=== PATIENT | male | born 1970 | race Caucasian/White ===

== ENCOUNTER 2016-09-03 10:31 | Observation (INO) | payer BC ==
--- NOTE | ~2016-09-03 | HP ---
History And Physical [id number] [facility] [place]. [address] NAME: FORTINO SEVILLA : 66 STATUS : ADM Colleen PAT#: [id number] AGE: 46 ADM/REG DATE : 09/03/16 MR#: [id number] REPORT SERV DATE: 09/03/16 DICTATED BY: PEPPER HERNANDEZ DATE: 09/03/16 REPORT STATUS : Draft TRANSCRIBED BY: MODL DATE: 09/03/16 DATE OF ADMISSION: 09/03/2016 REASON FOR ADMISSION: Abnormal blood test at Dr. Reynolds's office, sent to the emergency room, now suspicious of cardiomegaly, being congestive heart failure by Dr. Son. 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 Reynolds's office. On arrival, his potassium was 4.3. He did have a polycythemia with a red blood cell count of 51.9 of hematocrit but he smokes 2 packs of cigarettes a day. He drinks at least a 12 pack of beer a day. He is hungry and wants to eat. He has been feeling good. He was evaluated earlier by Dr. Son. He thought he had new onset of congestive heart failure and he was admitted to the CDU prior to evaluation in the emergency room. PAST MEDICAL HISTORY: Never in the hospital. He has not had any medical contact until he got his hydrochlorothiazide 25 mg [address] day [address] Reynolds's office. He did have a broken right wrist, was in the hospital about four years ago for repair. SOCIAL HISTORY: He has never been . 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 He smokes 2 packs cigarettes a day and drinks 12 pack of beer a day. He used to go to [employer], does not go anymore. FAMILY HISTORY: Father had congestive heart failure. Mother has a pacemaker. He had one brother who is alive and well. REVIEW OF SYSTEMS: No chest pain. No shortness of breath. No fever, chills, night sweats, melena, hematemesis, nausea, vomiting, or diarrhea. No fits, seizures, or convulsions. He did have some swelling in his legs that prompted the addition of the hydrochlorothiazide recently though this has gone away with the hydrochlorothiazide and he was at work today when he was called in to come to the emergency room. The remainder of the review of systems is negative. PHYSICAL EXAMINATION: VITAL SIGNS: His blood pressure is 138/90 now with a heart rate of 92, respiratory rate 23, and oxygen and saturation 98%. GENERAL: He is very rubric jacki appearing white male, in no acute distress. HEENT: EOMI. Sclerae clear. Conjunctivae pink and plethoric. NECK: No bruit without any JVD. CHEST: Decreased breath sounds throughout. HEART: Regular S1, S2 without murmur, gallop, or click. ABDOMEN: Soft, nontender. Bowel sounds positive. EXTREMITIES: Have trace edema at the ankles. Distal pulses are intact. The dorsalis pedis, posterior tibial neurologically withdraws to plantar stimulation. Acute Care Nurse Practitioner is equal and History And Physical [address] [id number] NAME: FORTINO SEVILLA : 66 STATUS : ADM Colleen PAT#: [id number] AGE: 46 ADM/REG DATE : 09/03/16 MR#: [id number] REPORT SERV DATE: 09/03/16 DICTATED BY: PEPPER HERNANDEZ DATE: 09/03/16 REPORT STATUS : Draft TRANSCRIBED BY: VALDEMAR DATE: 09/03/16 symmetric bilaterally. Coordination intact. He has no tremor. He is symmetric and equal neurologically. SKIN: Without rash, ecchymosis, or bruising. He does have a very jacki, tanned arm and face from sun exposure but also from plethora. LYMPHATICS: There is no adenopathy palpable. LABORATORY DATA: Chest x-ray shows mild cardiomegaly with some cephalization of blood flow versus interstitial disease. Arterial blood gas did show 7.41, 57, and 48, evidence of hypoxemia, however now on room air, oxygen saturation 92%. His hemoglobin is 18.5, hematocrit 51.5 with an MCV of 102.4. White count 5.7, platelets were 188,000. His BMP showed a sodium 131, potassium 4.3, chloride 87, CO2 is 36, creatinine 0.59, and magnesium 1.7. Troponin less than 0.02. EKG is reviewed by myself, appearing to have sinus rhythm with biatrial abnormality, slow R- wave progression, suspicious for old anterior scar; however, there is movement artifact on this. ASSESSMENT: 1. Hypertension. Recently started on hydrochlorothiazide. 2. Polycythemia, likely a combination of the cigarette smoking two packs per day plus the hydrochlorothiazide causing reactive polycythemia. I will ask him to stop cigarette smoking but continue hydrochlorothiazide and recheck with Dr. Reynolds in a few weeks. 3. Recent leg edema. 4. Alcoholism, 12 packs of beer a day. He is afraid to stop. We will likely discharge him home this afternoon after his echocardiogram is obtained in the CDU. 5. Probable COPD with CO2 retention. His PaCO2 is 57, and I suspect that his COPD may be severe and pulmonary function test as an outpatient would be advisable. 6. Alcoholism. 7. Leg edema resolving with the hydrochlorothiazide. PLAN: The patient is already in the CDU. Let us get an echocardiogram and submit this back to Dr. Reynolds for evaluation. His BNP was elevated at 464.4. 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 With cessation of drinking, he may improve. This is the instruction to him. TRENTON/VALDEMAR Pepper Hernandez M.D. / [id number] CC: Pepper Hernandez M.D.
--- NOTE | ~2016-09-03 | DS ---
Discharge Summary [id number] [place]. [address] NAME: FORTINO SEVILLA : 66 STATUS : DIS Colleen PAT#: [id number] AGE: 46 ADM/REG DATE : 09/03/16 MR#: [id number] REPORT SERV DATE: 09/04/16 DICTATED BY: PEPPER HERNANDEZ DATE: 09/03/16 REPORT STATUS : Draft TRANSCRIBED BY: MODL DATE: 09/03/16 ADMISSION DATE: 09/03/2016 DISCHARGE DATE: 09/03/2016 DIAGNOSES: 1. Hypertension, under control with hydrochlorothiazide. 2. Alcoholism. 3. Cardiomegaly, likely alcoholic cardiomyopathy. Echocardiogram pending. 4. Hypoxic and hypercarbic respiratory failure. Oxygen saturation initially with walking was 78%. Home O2 is being arranged with rechallenge prior to discharge. 5. Polycythemia likely reactive secondary to chronic hypoxemia and cigarette smoking with the 2-pack per day habit. He is encouraged to stop this. HOSPITAL COURSE: The patient was urged to come to the hospital with hyperkalemia. He was found to have polycythemia as well with hematocrit 51% below the phlebotomy threshold however. Echocardiogram was obtained. It was not going to be read today. The patient was walking, ambulating from bed to bathroom, approximately 40 feet with no problem although he did have an appearance of plethora. We will set him up home oxygen. Continue on the hydrochlorothiazide as before. Followup echocardiogram in the office of Dr. Reynolds. He will be discharged on hydrochlorothiazide 25 mg p.o. daily, Naprosyn 220 mg p.o. p.r.n. arthritic pain and see Dr. Reynolds regarding his alcoholic cardiomyopathy and hypoxemia on his established appointment of 09/22/2016 at 0830 hours. Home O2 is set up if the oxygen saturation remains less than 89%. TRENTON/VALDEMAR Pepper Hernandez M.D. / [id number] CC: Merary Smith M.D.
[2016-09-03] MEDS ORDERED: HYDROCHLOROT25 MG PO (10:37)
[2016-09-03] MEDS ORDERED: ALEVE220 MG PO (10:38)
[2016-09-03 10:47] LABS: BASOPHILS 0.5 %; BASOPHILS ABSOLUTE 0.03 10/3/uL (0.0-0.16); EOSINOPHILS 1.6 %; EOSINOPHILS ABSOLUTE 0.09 10/3/uL (0.0-0.53); ER CBC TAT 0 Hrs 08 Mins; HEMATOCRIT 51.5 % (40.0-51.0); HEMOGLOBIN 18.5 g/dL (13.6-17.8); IMMATURE GRANULOCYTES 0.2 %; IMMATURE GRANULOCYTES ABSOLUTE 0.01 10/3/uL (0.0-0.11); LYMPHOCYTES 20.1 %; LYMPHOCYTES ABSOLUTE 1.15 10/3/uL (0.67-4.30); MEAN CORPUS HGB CONC 35.9 g/dL (32.0-36.0); MEAN CORPUSCULAR HEMOGLOB 36.8 pg (26.0-34.0); MEAN CORPUSCULAR VOLUME 102.4 fL (80-100); MEAN PLATELET VOLUME 9.9 fL (9.2-13.0); MONOCYTES 17.5 %; NEUTROPHILS 60.1 %; NEUTROPHILS ABSOLUTE 3.43 10/3/uL (2.02-8.40); PLATELET COUNT 188 10/3/uL (150-400); RBC DISTRIBUTION WIDTH 14.3 % (12.0-16.0); RED CELL COUNT 5.03 10/6/uL (4.7-6.1); WHITE BLOOD CELLS 5.7 10/3/uL (4.5-10.5)
[2016-09-03 10:49] LABS: MANUAL DIFF NO %
[2016-09-03 10:50] LABS: ALLENS TEST Pos; CARBOXYHEMOGLOBIN 9.1 % (0-3); HCO3 (ACTUAL BICARBONATE) 35.4 MEQ/L (23-27); HEMOBLOGIN CONTENT 19.4 G/DL (14-18); INSTRUMENT SERIAL # 8087; METHEMOGLOBIN 0.3 % (0-3); OPERATOR ID 14335; PCO2 (CO2 TENSION) 57 MMHG (35-45); PO2 (O2 TENSION) 48 MMHG (79-93); SAMPLE Arterial; pH 7.41 (7.37-7.43)
[2016-09-03 10:54] LABS: INTERNATIONAL NORMAL RATI 0.9 UNITS (-); PARTIAL THROMBO TIME 29.3 SEC (22.5-37.2); PROTIME (NOT ORD) 12.5 SEC (12.0-14.5)
[2016-09-03 11:01] LABS: BUN (BLOOD UREA NITROGEN) 6 MG/DL (6-23); CALCIUM, SERUM 9.4 MG/DL (8.5-10.4); CHEST PAIN PROFILE TAT 0 Hrs 22 Mins; CHLORIDE, SERUM 87 MMOL/L (96-112); CO2 (CARBON DIOXIDE) 36 MMOL/L (24-34); CREATININE 0.59 MG/DL (0.70-1.30); GFR AFRICAN AMERICAN 139 ML/MIN (>=60); GFR NON AFRICAN AMERICAN 120 ML/MIN (>=60); GLUCOSE, SERUM 90 MG/DL (60-99); POTASSIUM, SERUM 4.3 MMOL/L (3.5-5.3); SODIUM, SERUM 131 MMOL/L (135-148); TROPONIN I <0.02 NG/ML (<0.05)
== END 2016-09-03 19:59 | disposition home or self-care (01) ==
LOC: ER 10:31 → CDU1 12:03
PROVIDERS: Hospitalist
DX: I10 Essential (primary) hypertension (principal); I51.7 Cardiomegaly; J96.91 Respiratory failure, unspecified with hypoxia; F17.210 Nicotine dependence, cigarettes, uncomplicated; D75.1 Secondary polycythemia; R60.0 Localized edema; F10.20 Alcohol dependence, uncomplicated; Z79.899 Other long term (current) drug therapy
CPT/HCPCS: 36600; 71010; 80048; 82805; 83735; 83880; 84484; 85025; 85610; 85730; 93005; 93306; 94640; 96374; 99285; A9270-GY; G0378